=== PATIENT | male | born 1970 | race Hispanic/Latino ===

== ENCOUNTER 2024-01-26 19:36 | Inpatient (IN) | payer BC, OTHER ==
[2024-01-26] MEDS ORDERED: Ondansetron PF 4 MG/2 ML Vial ONE (20:02)
[2024-01-26] MEDS ORDERED: Morphine 4 MG/ML VIAL ONE ×2 (20:02→20:41)
[2024-01-26 20:28] LABS: #Monocytes 0.5 thou/uL (0.11-0.59); #Neutrophils 7.1 thou/uL (1.40-6.50); %Basophils 0.2 % (0.0-1.0); %Eosinophils 0.2 % (0.0-10.0); %Lymphocytes 13.1 % (21.0-51.0); %Monocytes 5.3 % (0.0-10.0); %Neutrophils 80.9 % (42.0-75.0); Hematocrit 42.8 % (42.0-52.0); Mean Corpuscular Hemoglobin 31.3 pg (27.0-31.0); Mean Corpuscular Volume 89.2 fl (78.0-98.0); Mean Platelet Volume 10.4 fL (7.4-10.4); Platelet Count 185 10x3/uL (130-400); White Blood Cell (WBC) Count 8.7 10x3/uL (4.8-10.8)
[2024-01-26 21:02] LABS: ALT (SGPT) 38 U/L (8-55); AST (SGOT) 32 U/L (5-34); Albumin 4.8 g/dL (3.5-5.0); Alkaline Phosphatase 64 U/L (40-110); Anion Gap 12 mmol/L (10-20); BUN (Urea Nitrogen) 15 mg/dL (8.4-25.7); Calc. Creatinine Clearance 0 mL/min (70-130); Calcium 10.3 mg/dL (7.8-10.44); Carbon Dioxide 31 mmol/L (22-29); Chloride 103 mmol/L (98-107); Estimated GFR 87; Globulin 2.9 g/dL (2.4-3.5); Glucose 103 mg/dL (70-105); Lipase 14 U/L (8-78); Potassium 3.9 mmol/L (3.5-5.1); Protein, Total 7.7 g/dL (6.0-8.3); Sodium 142 mmol/L (136-145)
[2024-01-26 21:03] LABS: Troponin I Less than 0.010 ng/mL (< 0.028)
[2024-01-27] MEDS ORDERED: Ondansetron PF 4 MG/2 ML Vial IVP PRN (00:57)
[2024-01-27 01:09] VITALS: BMI 43.5
[2024-01-27] MEDS: Morphine 4 MG/ML VIAL SLOW IVP PRN (01:34)
[2024-01-27] MEDS: Sodium Chloride 0.9% 1,000 ML IV SCH (01:35)
[2024-01-27] MEDS ORDERED: EPINEPHrine 1 MG/ML VIAL ONE (06:42)
[2024-01-27] MEDS ORDERED: Bupivacaine PF 0.5% 30 ML VIAL ONE (06:42)
[2024-01-27] MEDS ORDERED: PROPOFOL 20 ML ONE (07:19)
[2024-01-27] MEDS ORDERED: fentaNYL PF 100 MCG/2 ML SYRINGE ONE (07:19)
[2024-01-27] MEDS ORDERED: Lidocaine 2% PF 5 ML VIAL ONE (07:19)
[2024-01-27] MEDS ORDERED: CEFAZOLIN 2 GM VIAL ONE (07:20)
[2024-01-27] MEDS ORDERED: Sodium Chloride 0.9% 100 ML ONE (07:20)
[2024-01-27] MEDS ORDERED: Ondansetron HCl/PF 4 MG/2 ML Vial IVP PRN ×2 (08:28→08:29)
[2024-01-27] MEDS ORDERED: HYDROmorphone 2 MG/ML VIAL SLOW IVP PRN (08:28)
[2024-01-27] MEDS ORDERED: PACU-Morphine 4MG/ML VIAL SLOW IVP PRN (08:28)
[2024-01-27] MEDS ORDERED: Promethazine HCl 25 MG/ML VIAL IM PRN ×2 (08:28→08:29)
[2024-01-27] MEDS ORDERED: HYDROmorphone 2 MG/ML VIAL ONE (08:40)
[2024-01-27] MEDS ORDERED: SUGAMMADEX SODIUM 200 MG/2 ML VIAL ONE (08:43)
[2024-01-27] MEDS ORDERED: HYDROmorphone 0.5 MG/0.5 ML SYRINGE ONE ×2 (09:11→09:19)
[2024-01-27 10:12] VITALS: BP 138/91; TEMP 97.8
[2024-01-27] MEDS ORDERED: Ibuprofen 600 MG TAB PO PRN (10:49)
[2024-01-27] MEDS ORDERED: traMADol HCl 50 MG TAB PO PRN (10:49)
[2024-01-27] MEDS: Acetaminophen 500 MG TAB PO SCH ×2 (12:02→13:37)
[2024-01-27] MEDS: FLU VACC QS2023-24(6MOS UP)/PF 60 MCG/0.5 ML SYRINGE IM ONE (12:09)
== END 2024-01-27 14:48 | disposition home or self-care (01) | DRG 355 ==
LOC: ERS 19:36 → SURG B 01-27 00:51
PROVIDERS: ADMIT Student in an Organized Health Care Education/Training Program; ATTEND Student in an Organized Health Care Education/Training Program
PROC: 0WUF0JZ Supplement Abdominal Wall with Synthetic Substitute, Open Approach (ICD-10-PCS; principal; 2024-01-27)
DX: K42.0 Umbilical hernia with obstruction, without gangrene (principal)
CPT/HCPCS: 36415; 71045; 74177; 80053; 83605; 83690; 84484; 85025; 93005; 96361; 96374; 96375; C1781; J0171; J0665; J1170; J2001; J2270; J2405; J2704; J3490; J7050